=== PATIENT | male | born 1945 | race Caucasian/White ===

== ENCOUNTER 2024-02-28 18:20 | Emergency (ER) | payer OTHER, SELFPAY ==
[2024-02-28 18:20] VITALS: BMI 26.8
[2024-02-28 18:24] VITALS: BP 162/99
[2024-02-28 18:28] LABS: Glucose - Point of Care 143 mg/dl (70-99)
--- NOTE | 2024-02-28 19:32 | ED.GENMED ---
History of Present Illness
General
Chief Complaint: Weakness
Source: patient and spouse
Exam Limitations: none
Time Seen by Provider: 02/28/24 19:00
Nursing documentation reviewed up to this point in time: agreed with
History of Present Illness
History of Present Illness:
The patient is a 78-year-old male with past medical history of aortic stenosis hypertension hyperlipidemia presenting to the emergency department today with concerns of generalized weakness fatigue. He claims that he was on vacation for 7 days in
[facility]. Where he felt very out of it and confused was seen in the emergency department earlier today where he had labs CT angiogram of the head and neck as well as an MRI of the brain which were all normal and was sent home. He has
ongoing fatigue though it has been improving throughout the day and are now seeking additional assessment. He denies any specific symptoms. No chest pain shortness of breath nausea vomiting focal numbness weakness urinary symptoms recent illnesses.
Review of Systems
Review of Systems
Allergies reviewed?: Yes
All Other Systems: ROS reviewed and negative except as documented in HPI and ROS
Phy Exam
Physical Exam
Physical Exam:
GENERAL: Alert , in no apparent distress
EYE: pupils equal and reactive
NECK: Supple, no significant adenopathy.
ENT: o/p clr, mmm.
CARDIAC: Regular rate and rhythm .
LUNGS: Clear breath sounds bilaterally, no acute respiratory distress, no wheezes/rales/rhonchi
ABDOMEN: Soft, without focal tenderness, no r/g, no cvat
NEUROLOGICAL: Alert and oriented, no focal neuro deficits
SKIN: Warm and dry, skin intact.
MUSCULOSKELETAL: No edema, well perfused.
PSYCH: Normal and appropriate interaction.
5 out of 5 upper and lower extremity strength normal sensation with palpating bilaterally normal finger-nose & no pronator drift
Course
Orders/Labs/Results
Orders:
Orders
02/28/24 19:28
EKG [Electrocardiogram (*1)] Urgent
Reason for Study: Fatigue / Weakness
EKG- Treatment ONCE
Urinalysis Reflex To Culture Urgent
02/28/24 19:39
CBC/With Diff [Complete Blood Count/With Diff] Urgent
CMP [Comprehensive Metabolic Panel] Urgent
COVID-19 Antigen Urgent
Source: Nasal Swab
Lyme Progressive Urgent
TSH Reflex To Free T4 Urgent
02/28/24 20:17
0.9% Sodium Chloride 500 ml [Nss] 500 ml IV BOLUS
Abnormal Lab Results
02/28/24 02/28/24
18:26 19:39
RBC 3.94 L 10^6/uL
(4.70-6.10)
Hgb 12.7 L g/dL
(13.0-18.0)
Hct 36.3 L %
(39.0-52.0)
MCH 32.2 H pg
(27.0-31.0)
Neutrophils % 78.0 H %
(42.2-75.2)
Lymphocytes % 17.8 L %
(20.5-51.1)
Sodium 134 L mmol/L
(135-145)
BUN 27 H mg/dl
(9-20)
Glucose 148 H mg/dl
(70-99)
POC Glucose 143 H mg/dl
(70-99)
02/28/24 19:39
02/28/24 19:39
Vital Signs
Initial and Last Documented VS:
Initial Vital Signs
Temp Pulse Resp BP Pulse Ox
97.7 F 79 18 162/99 98
02/28/24 18:24 02/28/24 18:24 02/28/24 18:24 02/28/24 18:24 02/28/24 18:24
Last Documented Vital Signs
Temp Pulse Resp BP Pulse Ox
97.7 F 83 17 183/90 97
02/28/24 18:24 02/28/24 22:11 02/28/24 21:30 02/28/24 22:00 02/28/24 21:47
MDM/Problems Addressed
MDM/Problems Addressed:
78-year-old male presenting to the emergency department today with concerns of generalized weakness fatigue forgetfulness starting this morning had a workup at a [place] ER including a CT angiogram of the head and neck MRI brain and labs which were
all normal and he was sent home. Symptoms are ongoing thus came back to the ER here. Here patient was found to have an elevated BUN to creatinine ratio and was given fluids and he claims to feel much better at this point symptoms potentially
consistent with dehydration of the labs blood pressure was normal for most of ER stay however seem to elevate at time of discharge however he at that point he had no ongoing symptoms concerning this patient was advised for close outpatient follow-up
and reassessment of his blood pressure over the next few days. Return precautions were given.
*Critical Care Note
Total Time (30-74mins, 75-104mins- exclusive of procedures): Not Applicable
ED Attending Note
-
Portions of this chart may have been created with voice recognition software.� Occasional wrong word or��sound alike� substitutions may have occurred due to the inherent limitations of voice recognition software.
Discharge Plan
Departure
Patient Disposition: Home (Routine Discharge)
Date of Disposition: 02/28/24
Time of Disposition: 22:20
Patient with high blood pressure during this ER visit?: Yes
Condition: Good
Covid-19: Not Applicable
Discharge Problem:
Fatigue, Dehydration
Instructions: Generalized Weakness (DC), BLOOD PRESSURE
Referrals:
NONE,* [Family Provider] -
Activity Restrictions/Additional Instructions:
You came to the emergency department today with concerns of generalized weakness and fatigue. This could be from dehydration. Please stay hydrated and follow closely as an outpatient. Additionally blood pressure was elevated. Please monitor this
at home and follow-up closely for this. Return to the emergency department for any worsening, new or concerning symptoms
Interventions
Interventions:
*General Assessment Last Done: 02/28/24 20:59
*Neglect/Abuse Screening Last Done: 02/28/24 20:59
*ED COVID-19 Vaccine History Last Done: 02/28/24 20:59
ED- Cardiac Assessment Last Done: 02/28/24 20:59
ED- Neurological Assessment Last Done: 02/28/24 20:59
ED- Pulmonary Assessment Last Done: 02/28/24 20:59
Discharge Date and Time
Print Language: GABONESE
[2024-02-28 19:44] VITALS: BP 162/85
[2024-02-28 19:54] LABS: % Basophils 0.4 % (0-2); % Eosinophils 0.1 % (0-6); % Immature Granulocytes 0.3 % (0-0.5); % Lymphocytes 17.8 % (20.5-51.1); % Monocytes 3.4 % (1.7-9.3); Absolute Lymphocytes 1.2 10^3/uL (1.2-3.4); Absolute Monocytes 0.2 10^3/uL (0.1-0.6); Absolute Neutrophils 5.3 10^3/uL (1.4-6.5); Hematocrit 36.3 % (39.0-52.0); Hemoglobin 12.7 g/dL (13.0-18.0); Mean Corpuscular Hgb 32.2 pg (27.0-31.0); Mean Corpuscular Volume 92.1 fL (80.0-94.0); Mean Platelet Volume 8.6 fL (7.4-10.4); Nucleated Red Blood Cells % 0 % (-); Platelet Count 302 10^3/uL (130-400); Red Blood Cell Count 3.94 10^6/uL (4.70-6.10); Red Cell Dist. Width 12.9 % (11.5-14.5); White Blood Cell Count 6.9 10^3/uL (4.8-10.8)
[2024-02-28 20:05] LABS: COVID-19 Antigen Negative (Negative)
[2024-02-28 20:11] LABS: ALT (SGPT) 20 U/L (0-50); AST (SGOT) 26 U/L (17-59); Albumin 4.5 g/dl (3.5-5.0); Alkaline Phosphatase 102 U/L (38-126); Blood Urea Nitrogen 27 mg/dl (9-20); Calcium 9.9 mg/dl (8.4-10.2); Carbon Dioxide 26 mmol/L (22-30); Chloride 102 mmol/L (98-107); Estimated Creatinine Clearance 64 ml/min; Glucose 148 mg/dl (70-99); Potassium 4.6 mmol/L (3.5-5.1); Sodium 134 mmol/L (135-145); Total Bilirubin 0.6 mg/dl (0.2-1.3); Total Protein 6.9 g/dl (6.3-8.2); eGFR > 60.00
[2024-02-28] MEDS: NSS 500 IV (20:34)
[2024-02-28 20:38] VITALS: BP 148/91
[2024-02-28 20:41] LABS: TSH Reflex To Free T4 0.82 uIU/ml (0.47-4.68)
[2024-02-28 21:00] VITALS: BP 170/82
[2024-02-28 22:00] VITALS: BP 183/90
[2024-03-01 14:39] LABS: Lyme Antibody Screen, EIA Negative (Negative)
== END 2024-02-28 22:30 | disposition home or self-care (01) ==
LOC: EMR 18:20
PROVIDERS: Physician Assistant; EMERGENCY PHYSICIAN Emergency Medicine
DX: E86.0 Dehydration (principal); R53.83 Other fatigue; I35.0 Nonrheumatic aortic (valve) stenosis; I10 Essential (primary) hypertension; E78.00 Pure hypercholesterolemia, unspecified
CPT/HCPCS: 99283; 96360; 80053; 82962; 84443; 85025; 86618; 87811; 93005